=== PATIENT | male | born 1970 ===

== ENCOUNTER 2017-12-25 20:31 | Emergency (ER) | payer SELFPAY ==
[~2017-12-25] VITALS: Ht 175.3 cm; Wt 161.0 kg
[2017-12-26 00:25] VITALS: BP 162/73
== END 2017-12-26 00:25 | disposition home or self-care (01) ==
LOC: ER 20:31
DX: H10.213 Acute toxic conjunctivitis, bilateral (principal)
CPT/HCPCS: 99283; Z7610